=== PATIENT | female | born 1965 | race Caucasian/White ===

== ENCOUNTER → 2022-11-15 11:09 | Outpatient (CLI) | payer OTHER, SELFPAY ==
--- NOTE | ~2022-11-15 | MR_ITS ---
EXAMINATION: MR cervical spine wo con DATE: 11/15/2022 11:54 INDICATION: Chronic left-sided neck pain. Left hand pain and numbness. TECHNIQUE: Magnetic resonance imaging (MRI) of the cervical spine was performed without intravenous c ontrast. COMPARISON: Lumbar spine MRI 02/07/2010 FINDINGS: There is kyphosis of cervical spine. Vertebral body heights are normal. There is interbody fusion at C2-C3, likely developmental. There is mildly decreased disc height at C3-C4 and C5-C6 and m oderately decreased disc height at C6-C7. The spinal cord signal intensity is normal. The following d isc levels are specifically discussed: C2-C3: The disc does not extend beyond the endplate margin. There is no uncovertebral joint hypertrop hy. There is no facet joint hypertrophy. There is no neural foraminal stenosis. There is no central c anal stenosis. C3-C4: The disc is bulging. There is mild bilateral uncovertebral joint osteoarthritis. There is mild right and severe left facet joint osteoarthritis. There is moderate left neural foraminal stenosis. There is mild central canal stenosis. C4-C5: The disc is bulging. There is mild bilateral uncovertebral joint osteoarthritis. There is mode rate left facet joint osteoarthritis. There is mild left neural foraminal stenosis. There is mild juan pablo tral canal stenosis with ventral indentation of spinal cord. C5-C6: The disc is bulging. There is mild right and moderate left uncovertebral joint osteoarthritis. There is mild right and severe left facet joint osteoarthritis. There is mild bilateral neural carlos inal stenosis. There is moderate central canal stenosis with ventral and dorsal indentation of the sp inal cord. C6-C7: The disc is bulging. There is moderate right and severe left uncovertebral joint osteoarthriti s. There is no facet joint osteoarthritis. There is mild bilateral neural foraminal stenosis. There i s mild central canal stenosis. C7-T1: The disc does not extend beyond the endplate margin. There is no uncovertebral joint osteoarth ritis. There is mild bilateral facet joint osteoarthritis. There is no neural foraminal stenosis. The re is no central canal stenosis. IMPRESSION: 1. Moderate cervical spondylosis, mildly worsened from 02/07/2010. Reviewed, dictated and finalized at location E.
== END ==
PROVIDERS: PCP Nurse Practitioner Family; Visit Provider Nurse Practitioner Family
DX: M54.2 Cervicalgia (principal); M43.02 Spondylolysis, cervical region; N39.0 Urinary tract infection, site not specified
CPT/HCPCS: 72141